=== PATIENT | female | born 1970 | race Caucasian/White ===

== ENCOUNTER → 2024-12-03 | Outpatient (CLI) | payer BC ==
--- NOTE | 2024-12-03 08:49 | MR ---
EXAMINATION TYPE: MR shoulder RT wo con DATE OF EXAM: 12/03/2024 8:01 AM COMPARISON: None. CLINICAL INDICATION: Female, 53 years old with history of M75.51 BURSITIS OF RIGHT SHOULDER, Right sh oulder pain, numbness, decreased ROM x 3 mos. No trauma. IV Contrast: cc (None if empty) TECHNIQUE: Multiplanar, multisequence imaging of the right shoulder is performed without contrast. FINDINGS: Rotator Cuff: Intact infraspinatus tendon. There is focal full-thickness tear involving the central f ibers of the supraspinatus tendon measuring 5 mm AP diameter sagittal image 8 and 8 mm transversely c oronal image 14. Intact subscapularis tendon. Rotator cuff muscle bulk is preserved. Acromioclavicular Joint: Mild to moderate narrowing at the acromioclavicular joint. Mild capsular hyp ertrophy and spurring. Loss of underlying fat plane on coronal image 18. Glenohumeral Joint: Small sized joint effusion. No significant spurring. Labrum: The labrum appears grossly intact given limitation of non-arthrogram study. Biceps Tendon: The long head of biceps is in normal location within bicipital groove. Bone marrow signal: No focal abnormal marrow signal is appreciated. Other: No additional significant abnormality is appreciated. IMPRESSION: 1. Focal full-thickness tear in the supraspinatus tendon. 2. No labral tear. 3. Mild to moderate degenerative changes are present as detailed above. [facility], , 12/03/2024 8:47 AM
== END | disposition home or self-care (01) ==
LOC: RADMRIMAIN 07:22
PROVIDERS: ATTEND Orthopaedic Surgery
DX: M19.011 Primary osteoarthritis, right shoulder (principal); M75.51 Bursitis of right shoulder; M75.41 Impingement syndrome of right shoulder; M75.121 Complete rotator cuff tear or rupture of right shoulder, not specified as traumatic